=== PATIENT | female | born 1995 | race Caucasian/White ===

== ENCOUNTER 2017-11-14 18:58 | Emergency (ER) | payer BC ==
[2017-11-14 19:02] VITALS: TEMP 103.1
[2017-11-14] MEDS ORDERED: SINGULAIR 110 MG/TAB PO (19:18)
[2017-11-14] MEDS ORDERED: RT ADVAIR 228 DISKUS IH (19:18)
[2017-11-14] MEDS ORDERED: PROAIR HFA0.09 MG/AC IH (19:18)
[2017-11-14] MEDS ORDERED: APRI 0.15 MG-0.1 TAB PO (19:18)
[2017-11-14] MEDS ORDERED: CRANBERRY500 M3 PO (19:19)
[2017-11-14 19:58] LABS: COLLECTION METHOD CLEAN CATCH
[2017-11-14 20:03] LABS: BASO % 0.3 % (0.0-2.0); EOS # 0.1 (0.0-0.7); EOS % 0.9 % (0-4.0); GRAN # 13.2 (1.4-6.5); GRAN % 87.3 % (42.2-75.2); HEMATOCRIT 39.6 % (37.0-47.0); HEMOGLOBIN 13.5 g/dl (12.5-16.0); LYMPH # 0.7 (1.2-3.4); LYMPH % 4.9 % (20.0-51.0); MEAN CELL VOLUME 92 fl (80.0-100.0); MEAN CORPUSCULAR HEMOGLOBIN 31 pg (27.0-31.0); MEAN CORPUSCULAR HGB CONC 34 g/dl (33.0-37.0); MEAN PLATELET VOLUME 11.2 fl (7.4-10.4); MONO # 0.9 (0.1-0.6); MONO % 6.1 % (1.7-9.3); PLATELET COUNT 190 K/mm3 (130-400); RED BLOOD COUNT 4.31 M/mm3 (4.10-5.30); REDCELL DISTRIBUTION WIDTH-CV 11.6 % (11.5-14.5)
[2017-11-14 20:06] LABS: PH 5 (5-8); SQUAMOUS EPITHELIAL 0-2 /hpf; URINE APPEARANCE Hazy; URINE BACTERIA Rare /hpf; URINE BILIRUBIN Negative (NEGATIVE); URINE BLOOD 1+ (NEGATIVE); URINE COLOR Yellow; URINE GLUCOSE Negative (NEGATIVE); URINE KETONE Negative (NEGATIVE); URINE LEUKOCYTE ESTERASE 2+ (NEGATIVE); URINE NITRATE Negative (NEGATIVE); URINE PROTEIN(semi-quant) Negative (NEGATIVE); URINE UROBILINOGEN Negative (NEGATIVE)
[2017-11-14 20:08] LABS: HCG-QUALITATIVE URINE NEGATIVE; STREP SCREEN NEGATIVE
[2017-11-14 20:13] LABS: ALBUMIN 3.7 gm/dL (3.5-5.0); BILIRUBIN,TOTAL 0.7 mg/dL (0.0-1.0); CALCIUM 9.4 mg/dL (8.4-10.2); CREATININE, serum 0.83 mg/dL (0.52-1.25); POTASSIUM 3.8 mmol/L (3.4-5.0); TOTAL PROTEIN 7.5 gm/dL (6.4-8.2)
[2017-11-14 20:21] LABS: C-REACTIVE PROTEIN 6.6 mg/dL (0.0-0.9)
[2017-11-14] MEDS ORDERED: ZOFRAN ODT4 MG PO (20:52)
[2017-11-14] MEDS ORDERED: AMOXICILLIN 8751 TAB PO (20:52)
[2017-11-14 21:09] VITALS: BP 114/66; PULSE 103
[2017-11-16] MEDS ORDERED: OMNICEF 300MG300 MG PO (16:55)
== END 2017-11-14 21:10 | disposition home or self-care (01) ==
LOC: COL.ER 18:58
PROVIDERS: Family Medicine
DX: N12 Tubulo-interstitial nephritis, not specified as acute or chronic (principal); Z79.52 Long term (current) use of systemic steroids
CPT/HCPCS: J0696; J2405; J7030

== ENCOUNTER 2018-11-28 15:54 | Inpatient (IN) | payer BC, MEDICAID ==
[~2018-11-28] VITALS: Ht 162.6 cm; Wt 74.1 kg
[2018-11-28] VITALS (26 sets, daily range): BP systolic 108–180; BP diastolic 51–93; PULSE 10–120; TEMP 98–99.1
--- NOTE | 2018-11-28 15:50 | NUR ---
PATIENT IN LR 3 COMPLAINING OF CONTRACTIONS. PATIENT DENIES LEAKING OF FLUID OR BLEEDING. PATIENT ON EFM, VITALS OBTAINED. ADMISSION OBTAINED, SVE PREFORMED. PATIENT HAS PARENTS AT BEDSIDE.
[~2018-11-28 15:54] MED LIST: AMOXICILLIN 8751 TAB PO; APRI 0.15 MG-0.1 TAB PO; CRANBERRY500 M3 PO; OMNICEF 300MG300 MG PO; PROAIR HFA0.09 MG/AC IH; RT ADVAIR 228 DISKUS IH; SINGULAIR 110 MG/TAB PO; ZOFRAN ODT4 MG PO
[2018-11-28] MEDS ORDERED: PRENATAL (16:16)
[2018-11-28] MEDS ORDERED: ZANTAC 7575 MG PO (16:16)
[2018-11-28 17:41] LABS: TRICYCLIC ANTIDEPRESS URINE NEGATIVE
--- NOTE | 2018-11-28 18:23 | NUR ---
1823 DR JUSTIN IN ROOM AND AROM WITH MED FLUID NOTED. ADM INPATIENT. 183 IV FLUIDS STARTED AFTER LAB DRAWN. PERMITS SIGNED.
--- NOTE | 2018-11-28 19:05 | NUR ---
1904 PITOCIN STARTED AT 2 MU PER MIN. PT REQUEST EPIDURAL. HIM CODER NOTIFIED.
[2018-11-28 19:09] LABS: BASO % 0.2 % (0.0-2.0); EOS # 0.1 (0.0-0.7); EOS % 0.8 % (0-4.0); GRAN % 74.2 % (42.2-75.2); HEMOGLOBIN 12.8 g/dl (12.5-16.0); LYMPH # 1.8 (1.2-3.4); LYMPH % 16.5 % (20.0-51.0); MEAN CELL VOLUME 93 fl (80.0-100.0); MEAN CORPUSCULAR HEMOGLOBIN 31 pg (27.0-31.0); MEAN CORPUSCULAR HGB CONC 34 g/dl (33.0-37.0); MEAN PLATELET VOLUME 11.9 fl (7.4-10.4); MONO # 0.8 (0.1-0.6); MONO % 7.7 % (1.7-9.3); PLATELET COUNT 138 K/mm3 (130-400); RED BLOOD COUNT 4.11 M/mm3 (4.10-5.30); REDCELL DISTRIBUTION WIDTH-CV 12.2 % (11.5-14.5)
--- NOTE | 2018-11-28 19:25 | NUR ---
1925 SITTING UP FOR EPID PLACEMENT. UNABLE TO TRACE HEART TONES WHILE SITTING. 193 TEST DOSE GIVEN. SEE ANESTHSIA RECORDS FOR MORE INFORMATION
--- NOTE | 2018-11-28 22:00 | NUR ---
2200 INSTRUCTED TO PUSH WITH CONTRACTIONS
--- NOTE | 2018-11-28 22:50 | NUR ---
2250 DR JUSTIN PUSHING WITH PT. READIED FOR DEL. 2301 VACUUM APPLIED TO HEAD PER DR JUSTIN 2304 DEL VIABLE FE. REMAINS IN LR3 WITH IVS INFUSING. CORD GASES OBTAINED PER DR JUSTIN.
[2018-11-29] VITALS (8 sets, daily range): BP systolic 113–313; BP diastolic 59–80; PULSE 76–95; TEMP 98.1–98.8
--- NOTE | 2018-11-29 01:25 | NUR ---
0125 IV TO INT. EPID CATH REMOVED. UP TO BR WITH ASSIST BUT NO VOID. PERICARE DONE. AMB TO NSY TO WATCH BABY BATH.
--- NOTE | 2018-11-29 09:26 | NUR ---
Initial visit; Mom thanked Radiation Therapist for offering congratulations and God's blessings for the of her daughter. Radiation Therapist thanked Mom for choosing [facility].
--- NOTE | 2018-11-29 11:03 | NUR ---
marketing services specialist was consulted on the patient. ANTONETTE met with the patient. She reports she was using marijuana before she was . She had a positive drug test on 05/17/18. The pt reports when she found out she was she stopped drinking and stopped smoking marijuana. ANTONETTE provided a resource packet to the patient. The patient has all the support and supplies she needs. ANTONETTE made a CPS report, intake ID # [id number]. Cord blood pending. There are no additional needs at this time.
[2018-11-30 08:50] VITALS: BP 132/78; PULSE 69; TEMP 98.2
[2018-11-30] MEDS ORDERED: IBU600 MG PO (10:45)
[2018-11-30] MEDS ORDERED: PERCOCET 325 MG1 TA2 PO (10:45)
[2018-11-30 16:26] VITALS: BP 122/68; PULSE 76; TEMP 97.8
--- NOTE | 2018-12-02 15:41 | NUR ---
Patient's baby's cord blood was negative for illegal drugs in system.
== END 2018-11-30 17:29 | disposition home or self-care (01) | DRG 807 ==
LOC: LDRO 15:54 → OB 18:33 → LDR 18:33 → OB 11-29 01:30
PROVIDERS: ADMIT Obstetrics & Gynecology
PROC: 10D07Z6 Extraction of Products of Conception, Vacuum, Via Natural or Artificial Opening (ICD-10-PCS; principal; 2018-11-28)
PROC: 0UQMXZZ Repair Vulva, External Approach (ICD-10-PCS; 2018-11-28)
PROC: 0HQ9XZZ Repair Perineum Skin, External Approach (ICD-10-PCS; 2018-11-28)
DX: O77.0 Labor and delivery complicated by meconium in amniotic fluid (principal); Z37.0 Single live birth; Z3A.39 39 weeks gestation of pregnancy; O76 Abnormality in fetal heart rate and rhythm complicating labor and delivery; O70.0 First degree perineal laceration during delivery; O26.893 Other specified pregnancy related conditions, third trimester; Z67.41 Type O blood, Rh negative
CPT/HCPCS: J2590; J2791; J7120

== ENCOUNTER 2023-03-16 18:26 | Emergency (ER) | payer SELFPAY ==
[~2023-03-16] VITALS: Ht 162.6 cm; Wt 59.1 kg
[~2023-03-16 18:26] MED LIST changes: +IBU600 MG PO; +PERCOCET 325 MG1 TA2 PO; +PRENATAL; +ZANTAC 7575 MG PO
[2023-03-16 18:28] VITALS: TEMP 97.6
[2023-03-16] MEDS ORDERED: PREDNISONE50 MG PO (19:58)
[2023-03-16] MEDS ORDERED: EPIPEN 2-PAK1 MG/ML IM (19:58)
[2023-03-16 20:10] VITALS: BP 117/60; PULSE 75
== END 2023-03-16 20:10 | disposition home or self-care (01) ==
LOC: COL.ER 18:26
DX: T78.1XXA Other adverse food reactions, not elsewhere classified, initial encounter (principal); Z91.040 Latex allergy status; Z28.310 Unvaccinated for COVID-19; X58.XXXA Exposure to other specified factors, initial encounter
CPT/HCPCS: J1200; J2930

== ENCOUNTER 2024-01-21 00:03 | Emergency (ER) | payer SELFPAY ==
[~2024-01-21] VITALS: Ht 162.6 cm; Wt 56.8 kg
[~2024-01-21 00:03] MED LIST changes: +EPIPEN 2-PAK1 MG/ML IM; +PREDNISONE50 MG PO
[2024-01-21 00:10] VITALS: TEMP 97.2
[2024-01-21] MEDS ORDERED: PREDNISONE20 MG PO (00:49)
[2024-01-21] MEDS ORDERED: EPIPEN 2-PAK1 MG/ML IM (00:49)
[2024-01-21] MEDS ORDERED: PEPCID 20MG TAB20 MG PO (00:49)
[2024-01-21 01:06] VITALS: BP 96/64; PULSE 82
== END 2024-01-21 01:06 | disposition home or self-care (01) ==
LOC: COL.ER 00:03
DX: T78.40XA Allergy, unspecified, initial encounter (principal); Z91.040 Latex allergy status